=== PATIENT | female | born 1980 | race Two or more races ===

== ENCOUNTER 2023-03-18 20:13 | Emergency (ER) | payer MEDICAID ==
[~2023-03-18] VITALS: Ht 165.1 cm; Wt 73.0 kg
[2023-03-18 20:39] VITALS: BP 143/99; PULSE 81; RESP 20; TEMP 98; O2SAT 98
[2023-03-18] MEDS ORDERED: BACITRACIN OINT 500 UNITS/GM PKT TP ONE ×2 (22:30→23:46)
[2023-03-18] MEDS ORDERED: NAPR-54 PO (22:31)
[2023-03-18] MEDS ORDERED: CEPH-588 PO (22:31)
[2023-03-18] MEDS ORDERED: LIDOCAINE MPF 2% 100 MG/5 ML VIAL INJ ONE (22:40)
[2023-03-18] MEDS ORDERED: LIDOCAINE 2% 1000 MG/50 ML VIAL INJ ONE (22:49)
[2023-03-19 00:02] VITALS: BP 143/99; PULSE 81; RESP 20; TEMP 98; O2SAT 98
== END 2023-03-19 00:03 | disposition home or self-care (01) ==
LOC: MED 20:13
DX: L60.0 Ingrowing nail (principal); L03.032 Cellulitis of left toe; Z79.1 Long term (current) use of non-steroidal anti-inflammatories (NSAID); Z79.2 Long term (current) use of antibiotics
CPT/HCPCS: 11730; 73630; 99284; J2001